=== PATIENT | female | born 1960 | race Hispanic/Latino ===

== ENCOUNTER 2017-01-23 23:39 | Emergency (ER) | payer SELFPAY ==
[~2017-01-23] VITALS: Ht 152.4 cm; Wt 75.0 kg
[~2017-01-23 23:39] MED LIST: HYDR-4003 PO; INSU100I; INSU100V10 SQ; METF500T4 PO; METO-301 PO; OMEP20TA86 PO; ONDA8TAB10 PO; OXYC5CAP4 PO; RANI150C4 PO; SIMV40TA5 PO; SUCR1ORA2 PO
[2017-01-23 23:44] VITALS: BP 121/51; PULSE 94; RESP 20; O2SAT 95
[2017-01-24] MEDS ORDERED: 0.9% Sodium Chloride 1,000 ML IV ONE ×2 (00:10→01:25)
[2017-01-24] MEDS ORDERED: Ondansetron 2 mg/mL 2 mL Inj IVPUSH ONE (00:25)
[2017-01-24] MEDS ORDERED: Pantoprazole 4 mg/mL 10 mL Inj IVPUSH ONE (00:25)
--- NOTE | 2017-01-24 00:32 | ED.REPORT ---
HPI-General Illness Date of Service Jan 24, 2017 ED Provider: Lalito Bai MD History of Present Illness: Richa Burton is a 56 year old woman with a PMH of DM2, GERD, chronic pain, hyperlipidemia, and longstanding abdominal pain with nausea and diarrhea. She presents with similar symptoms to previous visits with abdominal pain, nausea, diarrhea, and anorexia for the past several months. She has had multiple workups in the past for these symptoms, all of which have yielded only her underlying diabetes. She had a cholecytectomy in April which did not relieve her symptoms. Nursing Notes Stated Complaint: VOMITING Chief Complaint: Female Abdominal Pain Nursing Notes Reviewed: Yes Allergies: Coded Allergies: No Known Allergies (Verified , 01/23/17) Scheduled INSULIN GLARGINE-Expunged Drug, Do Not Renew! (Lantus-Expunged Drug, Do Not Renew!) 100 Unit/1 Ml Vial 15 UNIT SQ QAM Metformin (Metformin) 500 Mg Tablet 1,000 MG PO BID Omeprazole (Omeprazole) 20 Mg Tablet.dr 20 MG PO BID Ondansetron ODT (Ondansetron ODT) 8 Mg Tab.rapdis 8 MG PO Q4H Ranitidine (Ranitidine) 150 Mg Capsule 150 MG PO DAILY Simvastatin (Simvastatin) 40 Mg Tablet 40 MG PO HS Sucralfate Susp (Carafate Susp) 1 Gm/10 Ml Oral.susp 1 GM PO TIDAC Scheduled PRN Hydrocodone-Acetaminophen 5-325 mg (Hydrocodone-Acetaminophen 5-325 mg) 1 Each Tablet 1 TABLET PO TID PRN PRN For Pain Metoclopramide (Reglan) 10 Mg Tablet 10 MG PO TID PRN PRN For Nausea Promethazine HCl (Phenergan) 25 Mg Supp.rect 25 MG RC DIRECTED PRN PRN For Nausea oxyCODONE (oxyCODONE) Unknown Strength Capsule Unknown Dose PO Q4H PRN PRN For Pain Miscellaneous Medications Insulin Aspart (NovoLOG U-100 Pen) 100 Unit/Ml Insuln.pen General Time Seen by MD: 00:05 Chief Complaint Abdominal pain Hx Obtained From: Patient Sudden in Onset?: No Onset Occurred: More than a week ago... (>6 months) Symptom Duration: Waxes and wanes Severity: Current: Moderate Severity: Maximum: Severe Recent Healthcare: Recent doctor visit Similar Sx Previous: Yes Past Medical History Past Medical History Notes: Seen in February 2016 for Abd pain 02/14/16 - RUQ U/S normal, Moved to [place] - seen at [facility] had upper endoscopy 02/18/16 +for erythema of gastric ant antrum, patchy mild erythematous mucosa without bleeding in the duodenal bulb, patient was supposed to avoid NSAIDs, in initiate Prilosec therapy daily. Patient continued to have pain underwent cholecystectomy at [facility] by Dr. Cronin on 02/23/16, but symptoms persisted. Has been seen several times in follow up with persistent pain, she underwents CT imaging twice which revealed just a trace hematoma, nor bilaterally, small subhepatic fluid collection without inflammatory changes thought to be at a trace seroma or hematoma and was seen by surgery and did not require any intervention had a follow-up HIDA scan negative for bile leak Past Medical History Hx of leg and spine injury. patient with chronic pain, disability because of pain Reports: Diabetes mellitus, GERD, Hyperlipidemia Reports: Obesity Past Surgical History EGD at [facility] for 02/25 D. Lisbeth Reports: , Cholecystectomy Family History Reports: Diabetes mellitus Reports: Other Smoking History Never Smoker Social History Alcohol Use: Denies alcohol use Drug Use: Denies drug use Other Social History: Local resident Occupation lives by self, no work or school, on disability Ambulatory Status Independent Review of Systems Full Review of Systems GI: Reports: Abdominal pain, Anorexia, Diarrhea, Nausea, Vomiting Complete sys rev & neg: except as marked. Physical Exam Gen: A/O x3 pashto speaking woman in moderate acute distress secondary to abdominal pain Neck: Supple, non-tender, no thyromegally HEENT: PERRL, EOMI, mucous membranes slighlty dry CV: RRR, no murmurs rubs or gallops Resp: Lungs CTA BL, no wheezing rales or rhonchi Abdomen: slightly firm, diffusely mildly tender to palpation, no organomegally, hypoactive bowel tones 4Q, laparoscopic scars Extr: No clubbing cyanosis or edema Neuro: CN 2-12 grossly intact, no focal neurologic deficit. Vital Signs Vital Signs Date Time Temp Pulse Resp B/P Pulse Ox O2 Delivery O2 Flow Rate FiO2 01/24/17 03:49 88 16 101/58 94 Room Air 01/23/17 23:44 36.8 94 20 121/51 95 Room Air Initial VS: Reviewed Interpretation & Diagnostics Lab Results Interpretation Result Diagram: 01/24/17 0051 01/24/17 0051 Test 01/24/17 00:51 White Blood Count 3.8th/mm3 (3.8-10.1) Red Blood Count 4.81mil/mm3 (3.90-5.20) Hemoglobin 14.0g/dL (12.0-15.6) Hematocrit 42.7% (35.0-46.0) Mean Corpuscular Volume 88.8fL (81-100) Mean Corpuscular Hemoglobin 29.1pg (27.0-35.0) Mean Corpuscular Hemoglobin Concent 32.8% (32.0-37.0) Red Cell Distribution Width 13.5% (12.3-15.4) Platelet Count 202bil/L (150-400) Neutrophils (%) (Auto) 57.0% (40-74) Lymphocytes (%) (Auto) 28.2% (14-46) Monocytes (%) (Auto) 14.2% (4-12) Eosinophils (%) (Auto) 0% (0-5) Basophils (%) (Auto) 0.3% (0-3) Sodium Level 134mEq/L (134-144) Potassium Level 4.4mEq/L (3.5-5.2) Chloride Level 93mEq/L (97-108) Carbon Dioxide Level 21mmol/L (18-29) Blood Urea Nitrogen 14mg/dL (6-24) Creatinine 0.61mg/dL (0.57-1.00) Estimat Glomerular Filtration Rate 144mL/min (>59) Glucose Level 329mg/dL (60-99) Calcium Level 8.5mg/dL (8.5-10.1) Total Bilirubin 0.2mg/dL (0.0-1.2) Aspartate Amino Transf (AST/SGOT) 45U/L (0-50) Alanine Aminotransferase (ALT/SGPT) 40U/L (0-32) Alkaline Phosphatase 86U/L (25-150) Total Protein 7.5g/dL (6.4-8.4) Albumin 4.3g/dL (3.4-5.0) Lipase 25U/L (13-60) Hold Horne Top Tube Received (Received) Ketones 1:16 Re-Eval/Medical Decision Med Decision/Clinical Course Patient with lab results very similar to previous instances, no indication of acute intra-abdominal process. This patient's symptoms are most likely due to chronic diabetic gastroparesis with concurrent alf opiate analgesia, she is already on Reglan therapy. After administration of NS, Benadryl, Protonix, and Zofran which produced somnolence but did relieve her symptoms. CMP revealed a blood glucose at 326, patient was given 4U Regular insulin. The patient is scheduled for an upper endoscopy early next month. Patient was able to tolerate PO intake prior to discharge, and stated that she felt ready to go home. One multiple presentations with nausea vomiting and abdominal discomfort, likely due to diabetic gastroparesis. Systolic then ultimately established, but she has responded as in the past to fluids and nausea treatment. She has follow-up scheduled with gastroenterology for upper endoscopy, and likely would benefit from a motility study as well. Discharged in stable condition. Evidence of acidosis and no evidence of other acute intra-abdominal pathology. No indication for advanced imaging. 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 Both of these damage the nerves that supply the intestines which causes difficulty with digestion. The best way to improve your symptoms is to minimize your use of pain medication, and get better control of your blood sugar. Tu sintomas estan problamente porque tu medicacion de dolor, y tu diabetes. Los dos puede danar tus nervios para tu intestinos; por eso es mas dificil para training manager heces entre tus intestinos. Necisiata bashir menos medicacion de dolor, y hacer seguro tu azucar del sheyla es mas debajo. Vamos a escribir para un medicacion que ayudar tus nausea, en la futura si te tiene nausea use tommy medication se dice Phenergan; los directiones para usar esta en el packete. Si te tienes dolor en wilson abdomen mucho mas que tu tienes ahora, o no peudes comer nada; por favor regresa al hospital. Referrals: Johnny Wakefield MD (PCP) Attending Statement As attending of record for this patient, I conducted an independent history and physical exam, and concur with the resident documentation as above, and as amended. copies to: Johnny Wakefield MD, David E DO Jan 24, 2017 00:32 Lalito Bai MD Jan 24, 2017 07:46
[2017-01-24 01:01] LABS: BASOPHILS % (AUTO) 0.3 % (0-3); EOSINOPHILS % (AUTO) 0 % (0-5); MONOCYTES % (AUTO) 14.2 % (4-12); Mean Corpuscular Hemoglobin 29.1 pg (27.0-35.0); Mean Corpuscular Volume 88.8 fL (81-100); Platelet Count 202 bil/L (150-400)
[2017-01-24] MEDS ORDERED: Insulin Human NPH 100 Unit/mL 3 mL Inj SUBQ ONE (01:45)
[2017-01-24] MEDS ORDERED: PROM25SU46 RC (03:26)
[2017-01-24 03:49] VITALS: BP 101/58; PULSE 88; RESP 16; O2SAT 94
== END 2017-01-24 03:48 | disposition home or self-care (01) ==
LOC: SED 23:39
DX: E11.43 Type 2 diabetes mellitus with diabetic autonomic (poly)neuropathy (principal); E11.65 Type 2 diabetes mellitus with hyperglycemia; K31.84 Gastroparesis; K21.9 Gastro-esophageal reflux disease without esophagitis; E78.5 Hyperlipidemia, unspecified; Z79.4 Long term (current) use of insulin; Z79.84 Long term (current) use of oral hypoglycemic drugs
CPT/HCPCS: 36415; 80053; 82009; 82010; 83690; 85025; 96361; 96372; 96374; 96375; 99285; J1200; J1815; J2405; J7030